=== PATIENT | female | born 1945 | race Caucasian/White ===

== ENCOUNTER → 2020-08-09 00:23 | Outpatient (CLI) | payer MEDICARE, SELFPAY ==
[2020-08-09 18:19] LABS: SARS-CoV-2 RNA PCR Negative
== END ==
PROVIDERS: PCP Family Medicine; Visit Provider Internal Medicine Gastroenterology
DX: Z01.812 Encounter for preprocedural laboratory examination (principal); Z20.822 Contact with and (suspected) exposure to COVID-19
CPT/HCPCS: C9803; U0003; U0005

== ENCOUNTER 2020-08-12 00:22 | Day surgery (SDC) | payer MEDICARE, SELFPAY ==
[2020-07-26 11:32] VITALS: BMI 40.8
--- NOTE | ~2020-08-12 | CT_ITS ---
EXAMINATION: CT abdomen pelvis w con DATE: 08/12/2020 14:00 INDICATION: Colon mass TECHNIQUE: Computed tomography (CT) of the abdomen and pelvis was performed with 100 cc Omnipaque 350 intravenous contrast. Automated exposure control and iterative reconstruction technique were employe d. Exam dose: 1372.12 mGy-cm total exam DLP. COMPARISON: None. FINDINGS: There are calcified bilateral lower lobe pulmonary granulomas. There is discoid atelectasis or scarring at the base of the lingula. Normal heart size. No pericardial or pleural effusion. Moderate sliding hiatal hernia. Status post cholecystectomy. No bile duct or pancreatic duct dilatation. No hepatic, splenic, pancreatic space-occupying mass lesion. Probable small right adrenal adenoma. Normal left adrenal gland. Occasional bilateral probable renal cysts measuring up to approximately 11 mm on the right and 9 mm o n the left. No urinary tract calculus or hydroureteronephrosis. There is atherosclerotic calcification of the abdominal aorta and iliac arteries but no aneurysm. There is a soft tissue mass at the rectosigmoid area with surrounding lymph nodes measuring up to 12 x 14 mm and 8 x 17 mm. 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 There are shotty but nonenlarged periaortic or aortocaval nodes. There are numerous diverticula of the sigmoid and descending colon; no CT evidence of diverticulitis. Normal appendix. No bowel obstruction is evident. No intraperitoneal free air. Small fat-containing umbilical hernia. The uterus, adnexal areas and urinary bladder are unremarkable. Bilateral fat-containing inguinal hernias. Right total hip arthroplasty. Severe degenerative disease at T12-L1, L4-5 and L5-S1. There is mild retrolisthesis at L3-4. No suspicious osteolytic or osteoblastic lesions are noted. IMPRESSION: Soft tissue mass at the rectosigmoid area consistent with colon carcinoma, with adjacent metastatic lymph nodes Diverticulosis of left colon Normal appendix Probable bilateral renal cysts Small right adrenal adenoma Moderate sliding hiatal hernia Status post cholecystectomy Reviewed, dictated and finalized at [facility]. Reviewed, dictated and finalized at location [facility]. [employer] IMPRESSION: Soft tissue mass at the rectosigmoid area consistent with colon ca rcinoma, with adjacent metastatic lymph nodes Diverticulosis of left colon Normal appendix Probable bilateral renal cysts Small right adrenal adenoma Moderate sliding hiatal hernia Status post cholecystectomy
[2020-08-12 11:34] VITALS: BP 148/80; PULSE 88; RESP 20; TEMP 36.8; O2SAT 94; BMI 40.4
[2020-08-12] MEDS: LACTATED RINGERS 1,000 ML 150 ML IV CONT (11:51)
--- NOTE | 2020-08-12 12:13 | WPDANESEPPF ---
Anes - Initial Pre Proc Eval Procedure: Operation Date: 08/12/20 12:30 Proposed Procedures p Colonoscopy - Kiran Julio MD Date/Time: 08/12/20 12:13 Surgeon: Kiran Julio MD Pre Op Diagnosis: Positive Cologuard Patient Data Age: 75 Gender: F Height: 5 ft 3 in Weight: 103.4 kg Last Vital Signs Temp 36.8 C 08/12/20 11:34 Pulse 88 08/12/20 11:34 Resp 20 08/12/20 11:34 BP 148/80 H 08/12/20 11:34 Pulse Ox 94 08/12/20 11:34 Allergies Allergy/AdvReac Type Severity Reaction Status Date / Time No Known Allergies Allergy Verified 08/02/20 14:35 Home Medications Medication Instructions Recorded Confirmed Type oxybutynin chloride 5 mg tablet 5 mg PO TID #90 tablet 03/08/20 08/02/20 Rx sodium,potassium,mag sulfates 17.5 See Rx Instructions PO .COMPLEX 07/25/20 08/02/20 Rx gram-3.13 gram-1.6 gram oral soln #354 ml ketoconazole 1 applic TOPICAL BID PRN 07/26/20 08/02/20 History triamcinolone acetonide 1 applic TOPICAL BID PRN 07/26/20 08/02/20 History atorvastatin 10 mg tablet See Rx Instructions .ROUTE 08/08/20 Rx .COMPLEX #90 tablet diclofenac sodium 75 mg See Rx Instructions .ROUTE 08/08/20 Rx tablet,delayed release .COMPLEX #180 tablet lisinopril 20 See Rx Instructions .ROUTE 08/08/20 08/12/20 Rx mg-hydrochlorothiazide 25 mg tablet .COMPLEX #90 tablet Patient hx anesthesia problems: none Family hx anesthesia problems: none PMFSH Family History Family History Father Family history of cardiovascular disease Grandparent Family history of cardiovascular disease Family history of coronary artery disease Mother Family history of cardiovascular disease Acute myocardial infarction Carcinoma of colon Family history of malignant neoplasm of cervix Family history of lung cancer Family history of malignant neoplasm of breast in first degree relative Social History Social History (Updated 08/02/20 @ 14:55 by Chidi Ding PA-C) Smoking packs per day: 0.75 Smoking cigarettes per day: 15.0 Years smoked: 50 Smoking pack-years: 37.50 Smoking status: Former smoker Tobacco type: cigarettes Alcohol intake: never Substance use: never Substance use type: does not use Living arrangements: with family Anes - Evwin Final PreProcedure Day of Procedure 08/12/20 12:13 Patient weight: morbidly obese Heart: regular rate and rhythm Lungs: clear to auscultation Airway: Mallampati scale class II Neurological: alert and oriented Last oral intake: >/= 8 hours ASA classification: III Emergent: no Anesthetic plan: proceed Anesthesia type and monitoring: general GIVS and standard monitoring Informed Consent: The patient's anesthetic plan and its attendant risks and benefits were discussed with the patient/family/POA. Questions were solicited and answers provided to the satisfaction of the patient/family/POA.
--- NOTE | 2020-08-12 12:31 | PM.HPGS ---
History of Present Illness History of Present Illness Consent: Risks, benefits, and alternatives have been discussed and questions answered. Patient agrees to proceed with procedure. Chief complaint: Positive Cologuard Narrative: Yara Moralez is a 75 year old female had positive cologuard and lately rectal pressure. Had sigmoidoscopy more than 10 years ago. Review of Systems Constitutional: Constitutional: Denies headache(s) and Denies weakness Eyes: Eyes: Denies blurry vision ENT: Reports Normal hearing present, Denies headache(s) and Denies neck pain Cardiovascular: Cardiovascular: Denies chest pain and Denies dyspnea Respiratory: Respiratory: Denies dyspnea Gastrointestinal: Gastrointestinal: Reports no additional gastrointestinal complaints Genitourinary: Genitourinary: Denies dysuria Musculoskeletal: Musculoskeletal: Denies neck pain Integumentary/Breasts: Skin/Breast: Denies dry skin Neurologic: Reports Normal hearing present, Denies headache(s) and Denies weakness Psychiatric: Psychiatric: Denies anxiety Endocrine: Endocrine: Denies change in body appearance Hematologic/Lymphatic: Hematologic/Lymphatic: Denies easy bleeding Allergic/Immunologic: Allergic/Immunologic: Denies urticaria PMF Past Medical History Medical History (Updated 08/12/20 @ 12:33 by Kiran Julio MD) Positive colorectal cancer screening using Cologuard test Family History Family History Father Family history of cardiovascular disease Grandparent Family history of cardiovascular disease Family history of coronary artery disease Mother Family history of cardiovascular disease Acute myocardial infarction Carcinoma of colon Family history of malignant neoplasm of cervix Family history of lung cancer Family history of malignant neoplasm of breast in first degree relative Social History Social History (Updated 08/02/20 @ 14:55 by Chidi Ding PA-C) Smoking packs per day: 0.75 Smoking cigarettes per day: 15.0 Years smoked: 50 Smoking pack-years: 37.50 Smoking status: Former smoker Tobacco type: cigarettes Alcohol intake: never Substance use: never Substance use type: does not use Living arrangements: with family Meds Home Medications and Allergies Home Medications Medication Instructions Recorded Confirmed Type oxybutynin chloride 5 mg tablet 5 mg PO TID #90 tablet 03/08/20 08/02/20 Rx sodium,potassium,mag sulfates 17.5 See Rx Instructions PO .COMPLEX 07/25/20 08/02/20 Rx gram-3.13 gram-1.6 gram oral soln #354 ml ketoconazole 1 applic TOPICAL BID PRN 07/26/20 08/02/20 History triamcinolone acetonide 1 applic TOPICAL BID PRN 07/26/20 08/02/20 History atorvastatin 10 mg tablet See Rx Instructions .ROUTE 08/08/20 Rx .COMPLEX #90 tablet diclofenac sodium 75 mg See Rx Instructions .ROUTE 08/08/20 Rx tablet,delayed release .COMPLEX #180 tablet lisinopril 20 See Rx Instructions .ROUTE 08/08/20 08/12/20 Rx mg-hydrochlorothiazide 25 mg tablet .COMPLEX #90 tablet Allergies Allergy/AdvReac Type Severity Reaction Status Date / Time No Known Allergies Allergy Verified 08/02/20 14:35 Vital Signs Vital Signs - 24 hr 08/12/20 11:34 Temperature 98.3 F Pulse Rate 88 Respiratory Rate 20 Blood Pressure 148/80 H Pulse Oximetry 94 Exam Const: General: comfortable and no acute distress HENMT: General nose exam: Normal nares present Eyes: General: appearance normal, both eyes and all related structures Neck: Neck: no JVD Resp: Auscultation: clear to auscultation bilaterally Cardio: Rate: regular rate Rhythm: regular rhythm GI: Inspection: non-distended GI Palp: Yes Soft to palpation Skin: General skin exam: normal color Neuro: General: gait normal Speech: normal speech Extrem: General: normal to inspection Psych: Mental Status: mental status grossly normal Assessment
[2020-08-12 12:58] VITALS: BP 138/61; PULSE 106; RESP 24; O2SAT 99
[2020-08-12 13:08] VITALS: BP 162/81; PULSE 93; RESP 20; O2SAT 96
[2020-08-12 13:17] LABS: Hemoglobin 11.1 g/dL (12.0-15.0); Mean Corpuscular HGB Conc 31.7 g/dl (32-36); Mean Corpuscular Hemoglobin 27.3 pg (26-34); Mean Corpuscular Volume 86.2 fl (80-100); Platelet Count Result 337 k/mm3 (150-375); Red Blood Count 4.06 M/mm3 (4.2-5.4); Red Cell Distribution Width 14.1 % (11.5-14.5); White Blood Count 7.5 K/mm3 (4.5-10.0)
[2020-08-12 13:20] VITALS: BP 171/98; PULSE 80; RESP 20; O2SAT 97
--- NOTE | 2020-08-12 13:25 | SUR.PHASEII ---
Taking patient over to radiology with IV still in place.
[2020-08-12 13:29] LABS: Alanine Aminotransferase 12 U/L (4-35); Albumin Level 3.6 g/dL (3.5-5.1); Alkaline Phosphatase 61 U/L (38-126); Anion Gap 4 mmol/L (8-16); Aspartate Amino Transferase 19 U/L (14-36); Bilirubin,Total 0.4 mg/dL (0.2-1.3); Blood Urea Nitrogen 14 mg/dL (7-17); Carbon Dioxide 32 mmol/L (22-30); Chloride 105 mmol/L (98-107); Estimated CRCL calculation 82 ml/min; Estimated Glomerular Filt Rate > 60; Glucose 98 mg/dL (65-105); Potassium 3.6 mmol/L (3.4-5.0); Sodium 141 mmol/L (137-145)
== END 2020-08-12 13:30 | disposition home or self-care (01) ==
PROVIDERS: PCP Family Medicine; Visit Provider Internal Medicine Gastroenterology
PROC: 0DJD8ZZ Inspection of Lower Intestinal Tract, Via Natural or Artificial Opening Endoscopic (ICD-10-PCS; CPT 45378; principal; 2020-08-12 12:30)
DX: C18.7 Malignant neoplasm of sigmoid colon (principal); K62.89 Other specified diseases of anus and rectum; K57.30 Diverticulosis of large intestine without perforation or abscess without bleeding; K64.4 Residual hemorrhoidal skin tags; K64.8 Other hemorrhoids; R19.5 Other fecal abnormalities; Z87.891 Personal history of nicotine dependence; E66.01 Morbid (severe) obesity due to excess calories; Z68.41 Body mass index [BMI] 40.0-44.9, adult
CPT/HCPCS: 45380; 45381; 36415; 74177; 80053; 82378; 85027; 88305; C9803; J2704; J7120; Q9967; U0003; U0005

== ENCOUNTER 2020-08-21 08:22 | Outpatient (CLI) | payer MEDICARE, SELFPAY ==
--- NOTE | ~2020-08-21 | CT_ITS ---
EXAMINATION: CT diagnostic chest w con EXAM DATE: 08/21/2020 08:57 INDICATION: Sigmoid colonic cancer. TECHNIQUE: Spiral CT of the chest following intravenous injection of 75 mL Omnipaque 350. Axial, cor onal and sagittal images were reviewed. Coronal maximum intensity pixel images of chest reviewed. T lita dose-length product (DLP) for this examination was 771.85 mGy-cm. The exposure was tailored accor ding to patient size (auto mA exposure control), and iterative reconstruction (ASIR) was used as mathew tional dose reduction technique. Comparison is made to prior examination from 11/27/2016. FINDINGS: There are approximately a dozen pulmonary nodules identified up to 7 mm in size. These nod ules are new compared to 2017, and are most likely metastatic disease. Trace pericardial effusion. Tracheobronchial tree is patent. There is no mediastinal, hilar or axillary lymphadenopathy. Ther e is no pneumothorax. Heart normal in size. There is mild coronary arterial calcification, arteri al sclerosis. There are cholecystectomy clips. There is small to moderate sliding gastroesophageal h iatal hernia. No osteoblastic or osteolytic lesions identified. Bilateral shoulder arthritis and pro bably some right shoulder inferior recess joint bodies. IMPRESSION: 1. Approximately a dozen pulmonary nodules new compared to 2017, most likely metastatic disease. 2. Small to moderate hiatal hernia. Reviewed, dictated and finalized at location [facility]. [employer] IMPRESSION: 1. Approximately a dozen pulmonary nodules new compared to 2017, most likely m etastatic disease. 2. Small to moderate hiatal hernia.
== END 2020-08-21 08:23 | disposition home or self-care (01) ==
LOC: ANHIMG 08:27
PROVIDERS: PCP Family Medicine; Visit Provider Internal Medicine Hematology & Oncology
DX: C18.7 Malignant neoplasm of sigmoid colon (principal); K44.9 Diaphragmatic hernia without obstruction or gangrene; R91.8 Other nonspecific abnormal finding of lung field
CPT/HCPCS: 71260; Q9967

== ENCOUNTER 2020-08-27 13:19 | Outpatient (CLI) | payer MEDICARE, SELFPAY ==
--- NOTE | ~2020-08-27 | PE_ITS ---
EXAMINATION: PET skull to mid thigh DATE: 08/27/2020 15:24 INDICATION: Malignant neoplasm of the sigmoid colon TECHNIQUE: Blood glucose level was 90 mg/dL. 10.632 mCi of 18-fluorodeoxyglucose (18-FDG) was adminis tered i.v. Low dose computed tomography (CT) images were acquired from the base of the brain to the p roximal thighs for attenuation correction and anatomic localization. Positron emission tomography (PE T) images were acquired in the same distribution beginning 57 minutes after injection. Images includi ng fused PET/CT images were reconstructed in axial, coronal, and sagittal planes. Automated exposure control technique was employed. The dose-length product was 882.53mGy-cm. COMPARISON: Chest CT dated 08/21/[address] abdomen and pelvis dated 08/12/2020 FINDINGS: Head/neck: There is symmetric increased activity in the oral and nasal cavities, laryngeal muscles and ocular mu scles without CT correlate, likely physiologic. No pathologically enlarged cervical lymphadenopathy o r suspicious foci of increased FDG uptake in the visualized head or neck. Chest: Again seen are multiple scattered pulmonary nodules in both lungs measuring up to 8 mm in maximal steven meter which are without increased FDG uptake. Linear discoid atelectasis at the lingula. No pleural e ffusion. Heart size is normal. Chronic small pericardial effusion. Atherosclerotic coronary artery ca lcification and aortic valve calcification. Moderate-sized sliding-type hiatal hernia. Thoracic aorta is normal in caliber. No pathologically enlarged or FDG avid thoracic lymphadenopathy. Abdomen/pelvis/proximal thighs: Physiologic renal accumulation and excretion of FDG activity in the kidneys, bladder and along portio ns of ureters. Cholecystectomy clips the gallbladder fossa. Normal degree and heterogenous pattern of increased uptake throughout the liver without radiologic correlate or dominant FDG avid lesion. The pancreas, spleen and left adrenal gland are normal. 1.5 cm right adrenal nodule without increased FDG uptake. There is intense FDG uptake associated with a region of circumferential wall thickening at t he distal sigmoid colon with maximal SUV of 22.3. There is increased FDG uptake of varying intensitie s associated with a few mildly enlarged lymph nodes along the inferior mesenteric artery chain. For r eference a lymph node anterior to the S2 segment measures 12 x 8 mm with maximal SUV of 11.5. No othe r enlarged or FDG avid lymphadenopathy in the abdomen, pelvis or proximal thighs. Musculoskeletal: Noncemented right total hip arthroplasty. Severe bilateral glenohumeral osteoarthritis with diffuse m ild synovial FDG uptake. No suspicious lytic, blastic or FDG avid bone lesions. IMPRESSION: 1. Intense FDG uptake along a segment of circumferential wall thickening in the distal sigmoid colon consistent with provided history of colon cancer. 2. Increased FDG uptake associated with several enlarged lymph nodes along the inferior mesenteric ch ain consistent with regional metastatic lymphadenopathy. 3. No evident FDG uptake associated with multiple bilateral pulmonary nodules measuring up to 8 mm in maximal diameter. The absence of appreciable increased uptake is reassuring given the intense uptake associated with the primary malignancy and adjacent likely metastatic lymph nodes and these nodules could represent sequela of old granulomatous disease. Would recommend continued attention on follow-u p chest CT . 4. 1.5 cm right adrenal nodule without evident FDG uptake which would favor adenoma for metastatic di sease. 5. Moderate-sized sliding-type hiatal hernia. Reviewed, dictated and finalized at location [facility]. [facility]
[2020-08-27 13:55] LABS: Glucose Point of Care 90 (65-105)
== END 2020-08-27 13:20 | disposition home or self-care (01) ==
PROVIDERS: PCP Family Medicine; Visit Provider Internal Medicine Hematology & Oncology
DX: C18.7 Malignant neoplasm of sigmoid colon (principal); R91.8 Other nonspecific abnormal finding of lung field; E27.9 Disorder of adrenal gland, unspecified; K44.9 Diaphragmatic hernia without obstruction or gangrene
CPT/HCPCS: 78815; 82948; A9552

== ENCOUNTER 2020-09-12 13:51 | Outpatient (CLI) | payer MEDICARE, SELFPAY ==
--- NOTE | 2020-09-12 14:38 | ECG_ITS ---
Measurements Intervals [place] Rate: 80 P: 40 KS: 140 QRS: 31 QRSD: 84 T: 31 QT: 369 QTc: 428 Interpretive Statements SINUS RHYTHM LOW QRS VOLTAGE IN PRECORDIAL LEADS BASELINE ARTIFACT- I, II, III, AVR, AVL, AVF, V3-V4 BORDERLINE ECG Electronically Signed On 09-12-2020 14:52:48 CDT by Darian Sigala D.O.
== END 2020-09-12 13:52 | disposition home or self-care (01) ==
LOC: ANHSURGERY 13:53
PROVIDERS: PCP Family Medicine; Visit Provider Surgery
DX: C19 Malignant neoplasm of rectosigmoid junction (principal); I10 Essential (primary) hypertension; Z01.818 Encounter for other preprocedural examination; R94.31 Abnormal electrocardiogram [ECG] [EKG]
CPT/HCPCS: 36415; 86850; 86900; 86901; 93005

== ENCOUNTER → 2020-09-14 00:53 | Outpatient (CLI) | payer MEDICARE, SELFPAY ==
[2020-09-14 19:13] LABS: SARS-CoV-2 RNA PCR Negative
== END ==
PROVIDERS: PCP Family Medicine; Visit Provider Surgery
DX: Z01.812 Encounter for preprocedural laboratory examination (principal); Z20.822 Contact with and (suspected) exposure to COVID-19
CPT/HCPCS: C9803; U0003; U0005

== ENCOUNTER 2020-09-18 16:59 | Inpatient (IN) | payer MEDICARE, SELFPAY ==
[2020-09-12 14:00] VITALS: BMI 41.1
[2020-09-12 14:40] VITALS: BP 126/57; PULSE 88; RESP 16; TEMP 37.2; O2SAT 98
[2020-09-18] VITALS (14 sets, daily range): BP systolic 94–146; BP diastolic 46–89; PULSE 75–100; RESP 12–20; TEMP 35.6–36.6; O2SAT 90–100; BMI 43.6
--- NOTE | ~2020-09-18 | XR_ITS ---
EXAMINATION: XR fl guid NG/feed tube insert DATE: 09/20/2020 14:28 INDICATION: Nasogastric tube placement TECHNIQUE: 4 fluoroscopic images of the lower abdomen were obtained during nasogastric tube placement performed by the patient's nurse. The amount of fluoroscopy time used during this procedure was 2.2 minutes. COMPARISON: CT dated 08/12/2020 FINDINGS: The nasogastric tube was able to be advanced into the small intrathoracic portion of the stomach with small sliding-type hiatal hernia seen on prior CT. Despite multiple attempts resulting in recurrent patient emesis the tube was uneventfully advanced further into the anterior abdominal portion of the stomach. IMPRESSION: 1. Fluoroscopy utilized during nasogastric tube placement. The distal tip was able to be advanced int o the intrathoracic portion of the stomach with small sliding-type hiatal hernia. Reviewed, dictated and finalized at location A. IMPRESSION: 1. Fluoroscopy utilized during nasogastric tube placement. The distal tip was a ble to be advanced into the intrathoracic portion of the stomach with small sli ding-type hiatal hernia.
--- NOTE | ~2020-09-18 | XR_ITS ---
XR chest 1V portable 09/25/2020 12:47 Indication: Shortness of breath Procedure: AP portable chest Comparison: 12/15/2017 Findings: Cardiomegaly. There are linear infiltrates in the right perihilar and left mid lung zone lo cations. Elevated right diaphragm. No focal pneumonia, pleural effusion or pneumothorax. No acute oss eous abnormality. There are degenerative changes of the shoulders with loose bodies medial to the rig ht shoulder joint. Impression: 1: Bilateral subsegmental atelectasis. 2: Cardiomegaly. Reviewed, dictated and finalized at location B. Impression: 1: Bilateral subsegmental atelectasis. 2: Cardiomegaly.
--- NOTE | 2020-09-18 08:36 | WPDANESEPPF ---
Anes - Initial Pre Proc Eval Procedure: Operation Date: 09/18/20 12:00 Proposed Procedures p Hand Assisted Laparoscopic Sigmoidectomy Lower Anterior Resection - Precious Nair MD Date/Time: 09/18/20 08:36 Surgeon: Precious Nair MD Pre Op Diagnosis: Rectal Sigmoid CA Patient Data Age: 75 Gender: F Height: 1.59 m Weight: 103.6 kg Last Vital Signs Temp 37.2 C 09/12/20 14:40 Pulse 88 09/12/20 14:40 Resp 16 09/12/20 14:40 BP 126/57 L 09/12/20 14:40 Pulse Ox 98 09/12/20 14:40 Allergies Allergy/AdvReac Type Severity Reaction Status Date / Time No Known Allergies Allergy Verified 09/12/20 14:01 Home Medications Medication Instructions Recorded Confirmed Type ketoconazole 1 applic TOPICAL BID PRN 07/26/20 09/18/20 History triamcinolone acetonide 1 applic TOPICAL BID PRN 07/26/20 09/18/20 History atorvastatin 10 mg tablet See Rx Instructions .ROUTE 08/08/20 09/18/20 Rx .COMPLEX #90 tablet neomycin 500 mg tablet 1 g PO .COMPLEX #6 tablet 09/09/20 09/18/20 Rx diclofenac sodium 75 mg PO QAM 09/12/20 09/18/20 History lisinopril-hydrochlorothiazide 0.5 tablet PO QAM 09/12/20 09/18/20 History oxybutynin chloride 5 mg PO BID 09/12/20 09/18/20 History metronidazole 500 mg tablet 500 mg PO .COMPLEX #3 tablet 09/13/20 09/18/20 Rx Patient hx anesthesia problems: none Family hx anesthesia problems: none PMFSH Past Medical History Medical History Benign essential hypertension Dyslipidemia Mass of colon Positive colorectal cancer screening using Cologuard test Surgical History Surgical History History of cholecystectomy History of colonoscopy History of left knee replacement History of right hip replacement Family History Family History Father Family history of cardiovascular disease Grandparent Family history of cardiovascular disease Family history of coronary artery disease Mother Family history of cardiovascular disease Acute myocardial infarction Carcinoma of colon Family history of malignant neoplasm of cervix Family history of lung cancer Family history of malignant neoplasm of breast in first degree relative Social History Social History Smoking packs per day: 0.5 Smoking cigarettes per day: 10.0 Years smoked: 50 Smoking pack-years: 25.00 Smoking status: Former smoker Tobacco type: cigarettes Smoking end date: 06/28/10 Alcohol intake: never Substance use: never Substance use type: does not use Living arrangements: with family Spiritual care concerns: No Anes - Eval Final PreProcedure Day of Procedure 09/18/20 08:36 Patient weight: morbidly obese Heart: regular rate and rhythm Lungs: clear to auscultation and normal air movement Airway: Mallampati scale class III Neurological: alert and oriented Last oral intake: >/= 8 hours ASA classification: III Emergent: no Anesthetic plan: proceed Anesthesia type and monitoring: general ETT and standard monitoring Informed Consent: The patient's anesthetic plan and its attendant risks and benefits were discussed with the patient/family/POA. Questions were solicited and answers provided to the satisfaction of the patient/family/POA.
[2020-09-18] MEDS: ACETAMINOPHEN 500 MG TABLET 1000 MG PO (10:23)
[2020-09-18] MEDS: ALVIMOPAN 12 MG CAPSULE PO (10:24)
[2020-09-18] MEDS: LACTATED RINGERS 1,000 ML 30 ML IV CONT ×2 (10:50→15:27)
[2020-09-18] MEDS: KETOROLAC 15 MG/ML VIAL (*BKC) IV PUSH (10:56)
--- NOTE | 2020-09-18 11:27 | WPDHPUPDATE1 ---
History and Physical Update Update Date/Time: 09/18/20 11:27 History and Physical has been reviewed, including an updated exam of the patient. There are NO changes in the patient's condition. Risks, benefits, and alternatives have been discussed and questions answered. Patient agrees to proceed with procedure.
[2020-09-18] MEDS: ceFAZolin 2 GM/D5W 50 ML 2 GM/50 ML BAG IVPB (11:34)
[2020-09-18] MEDS: metroNIDAZOLE 500 MG/ISO 100ML 500 MG/100 ML BAG 100 MG IVPB (11:46)
[2020-09-18] MEDS: BUPIVACAINE/EPINEPHRINE 0.5% 30 ML VIAL INFILTRATE (12:37)
--- NOTE | 2020-09-18 15:25 | PM.PROC ---
Procedure Note - Detailed Date of procedure: 09/18/20 Pre-op diagnosis: Rectal Sigmoid CA Post-op diagnosis: same Procedure performed: Hand assisted laparoscopic low anterior resection with low pelvic anastomosis and loop ileostomy, laparoscopic mobilization of the splenic flexure Description of procedure: The patient was taken to the operating room and placed in the modified lithotomy position. After adequate induction of general anesthesia, the patient was prepped and draped in the normal sterile fashion. A time-out was then done to verify the patient's identity, as well as the procedure being performed. An approximately 7 cm vertical incision was made in the periumbilical region favoring the infra umbilical area. This incision was carried down into the peritoneal cavity. Once into the peritoneal cavity, I was able to visualize the anterior abdominal wall and no adhesions were noted. I then proceeded to place the hand port. I then insufflated the abdomen through the hand port. I then placed under direct visualization a further 5 mm port in the right lower abdomen as well a 5 mm port in the suprapubic area. The patient was steep Trendelenburg and rotated to the right. The sigmoid colon was then retracted anteriorly to tent up the DONNELL and mesocolon. The medial side of the peritoneum was then scored the hook electrocautery. I was then able to enter the avascular retroperitoneal plane and continued the medial to lateral dissection. I was able to identify the left ureter and this was preserved in its location throughout the entire case. I then went ahead and isolated the inferior mesenteric artery and ligated it with the LigaSure device. Then continued along the medial to lateral plane and dissected out the lateral peritoneal attachments to descending sigmoid colon. This dissection was then carried down to the upper rectum. I then continued the dissection along the mesorectal plane down low into the pelvis and distal rectum. I was able to palpate a very large circumferential tumor in the distal sigmoid upper rectal junction. The tumor was noted to be very friable especially in the anterior portion. I began dissection posterior and then came along in the each lateral side with the LigaSure completing my mesorectal excision. Once I was distal to the tumor, I was able to clear off rectum in this area. I then turned my attention to the proximal resection. I continued my lateral dissection up the white line of Toldt to free up the sigmoid colon laterally. At this point I went ahead and mobilized the splenic flexure to gain length for our anticipated anastomosis. The echelon 60 mm blue load stapler was then advanced across the mid rectum and clamped and fired. This took a total of 2 firings of the stapler to completely come across the rectum. The sigmoid colon and rectum was then delivered through the wound protector and the GelPort was removed. Upon examining the area of the tumor, it was noted that there was an anterior perforation. I then identified an area of the descending sigmoid that appeared to be appropriate for the distal anastomosis. The mesocolon was taken down to this level the remainder of the way using the LigaSure device. I then placed the auto purse Celeste device this area and transected the descending sigmoid colon. The specimen was now sent to pathology for further review. I then used in 28 mm EEA stapler and placed in the descending sigmoid colon the area of the anticipated proximal anastomosis. It was noted that we had plenty of length to reach to the pelvis. We then replaced the hand port and reinsufflated the abdomen. Dr. Edward was then present for the anastomosis as he went to do the rectal portion of the procedure. Upon placing the EEA sizers, there was noted to be a tear in the anterior portion of the rectal stump. Given this, further dissection of the rectal stump was done to get distal to the area of perforation. Once done, was able
[2020-09-18] MEDS: fentaNYL CITRATE INJ (*CRX) 100 MCG/2 ML VIAL 25 MCG IV PUSH ×2 (16:11→16:15)
--- NOTE | 2020-09-18 17:05 | PC.NURSE ---
This patient, Yara Moralez, was admitted to Medical Room 341-01. Patient/family oriented to hospital policies and general routines including ID bracelet, bed and alarms, visiting hours, pain management, procedures, bathroom and other care routines, personal items, smoking policy, room service/diet, and visiting hours. Information on how to activate the Rapid Response Team has been discussed. Patient/Family are encouraged to report perceived risks to care and to ask questions if they do not understand what they are told or what they should do.
[2020-09-18] MEDS: LACTATED RINGERS 1,000 ML 100 ML IV CONT (18:42)
--- NOTE | 2020-09-18 23:00 | PC.NURSE ---
Attempted to get patient out of bed and sitting up in the chair. Patient refused, stating, I just want to rest tonight. Patient educated on the importance of moving after surgery and using her incentive spirometer.
[2020-09-19] MEDS: HYDROcodone/acetaminophen (*CRX) 5-325 MG TABLET 2 TAB PO ×2 (02:43→21:19)
[2020-09-19 04:06] VITALS: BP 125/70; PULSE 99; RESP 17; TEMP 36.7; O2SAT 96
[2020-09-19] MEDS: LACTATED RINGERS 1,000 ML 100 ML IV CONT (05:07)
[2020-09-19 06:26] LABS: Hematocrit 33.8 % (37.0-47.0); Hemoglobin 10.6 g/dL (12.0-15.0); Mean Corpuscular HGB Conc 31.4 g/dl (32-36); Mean Corpuscular Hemoglobin 26.7 pg (26-34); Mean Corpuscular Volume 85.1 fl (80-100); Mean Platelet Volume 9.7 fl (7.4-10.4); Platelet Count Result 319 k/mm3 (150-375); Red Blood Count 3.97 M/mm3 (4.2-5.4); Red Cell Distribution Width 14.2 % (11.5-14.5); White Blood Count 16.4 K/mm3 (4.5-10.0)
[2020-09-19 06:50] LABS: Anion Gap 6 mmol/L (8-16); Blood Urea Nitrogen 15 mg/dL (7-17); Calcium 8.6 mg/dL (8.4-10.2); Carbon Dioxide 30 mmol/L (22-30); Chloride 99 mmol/L (98-107); Estimated CRCL calculation 73 ml/min; Estimated Glomerular Filt Rate > 60; Glucose 121 mg/dL (65-105); Potassium 3.7 mmol/L (3.4-5.0); Sodium 135 mmol/L (137-145)
[2020-09-19 06:57] LABS: Band Neutrophils Percent 14 % (0-6); Lymphocytes Absolute Manual 0.98 K/mm3 (1.1-4.5); Monocytes Absolute Manual 1.14 K/mm3 (0.1-0.90); Monocytes Percent Manual 7 % (3-9); Neutrophils Absolute Manual 14.26 K/mm3 (1.7-7.2); Neutrophils Percent Manual 73 % (46-73); Platelet Estimate Adequate (Adequate); Total Cells Counted 100
[2020-09-19 06:58] LABS: Anisocytosis 1+ (NORMAL)
--- NOTE | 2020-09-19 09:17 | WPDANESPN ---
Anes - Prog Note Post-Op Date/Time: 09/19/20 09:17 Cardiovascular status: normal Respiratory status: normal Airway patency: baseline Mental status: baseline Post-Op hydration status: normal Vital Signs: Last Vital Signs Temp 98.1 F 09/19/20 04:06 Pulse 99 09/19/20 04:06 Resp 17 09/19/20 04:06 BP 125/70 09/19/20 04:06 Pulse Ox 96 09/19/20 04:06 Pain Score (VAS): 07/07 I/O: Intake & Output 09/18/20 09/19/20 09/19/20 23:59 07:59 15:59 Intake Total 550 1175 Output Total 120 300 Balance 430 875 Laboratory Tests 09/19/20 05:33 09/19/20 05:33 09/19/20 09/19/20 05:33 05:33 WBC 16.4 H RBC 3.97 L Hgb 10.6 L Hct 33.8 L MCV 85.1 MCH 26.7 MCHC 31.4 L RDW 14.2 Plt Count 319 MPV 9.7 Immature Gran % (Auto) Not Reportable Neut % (Auto) Not Reportable Lymph % (Auto) Not Reportable [place] % (Auto) Not Reportable Eos % (Auto) Not Reportable Baso % (Auto) Not Reportable Lymph # (Auto) Not Reportable [place] # (Auto) Not Reportable Eos # (Auto) Not Reportable Baso # (Auto) Not Reportable Abs Immat Gran (auto) Not Reportable Absolute Neuts (auto) Not Reportable Absolute Nucleated RBC Not Reportable Total Counted 100 Neutrophils % (Manual) 73 Band Neutrophils % 14 H Lymphocytes % (Manual) 6.0 L Monocytes % (Manual) 7 Nucleated RBC % Not Reportable Abs Neuts (Manual) 14.26 H Abs Lymphs (Manual) 0.98 L Abs Monocytes (Manual) 1.14 H Platelet Estimate Adequate Anisocytosis 1+ Sodium 135 L Potassium 3.7 Chloride 99 Carbon Dioxide 30 Anion Gap 6 L BUN 15 Creatinine 0.70 Estim Creat Clear Calc 73 Estimated GFR > 60 Glucose 121 H Calcium 8.6 Post-procedural complaints: none Patient Feedback: Patient satisfied with anesthetic care.
[2020-09-19 09:30] VITALS: O2SAT 96
[2020-09-19] MEDS: hydroCHLOROthiazide 12.5 MG CAPSULE PO (09:32)
[2020-09-19] MEDS: ATORVASTATIN 10 MG TABLET PO (09:32)
[2020-09-19] MEDS: OXYBUTYNIN CHLORIDE 5 MG TABLET PO (09:32)
[2020-09-19] MEDS: ALVIMOPAN 12 MG CAPSULE PO ×2 (09:32→21:19)
[2020-09-19] MEDS: lisinopriL 10 MG TABLET PO (09:32)
[2020-09-19] MEDS: PANTOPRAZOLE 40 MG TABLET PO (09:33)
[2020-09-19] MEDS: ENOXAPARIN 40 MG/0.4 ML SYRINGE SUB-Q (09:33)
[2020-09-19] MEDS: MORPHINE SULFATE (*CRX) 2 MG/ML INJ IV PUSH (09:35)
[2020-09-19 10:44] VITALS: BP 130/78; PULSE 86; RESP 18; TEMP 36.1; O2SAT 100
--- NOTE | 2020-09-19 10:59 | PM.PNGS ---
Progress Note: A&P Assessment and Plan (1) Metastatic colon cancer in female: Code(s): C18.9 - Malignant neoplasm of colon, unspecified Status: Acute Assessment and Plan: POD#1 and doing fair. Pain not well controlled on oral analgesics, will try IV this morning. Continue clear liquids. Monitor IRAJ drain to bulb suction. Encouraged OOB, increased activity, and IS use. Will order PT to work with patient. Urine output slightly low but also not much oral intake, will increase IV fluids for today until tolerating diet. Creatinine normal, labs this morning were unremarkable. Repeat labs in the am. Await return of bowel function. Pathology pending. Additional Plan Discussed plan of care with Dr. Nair today. Subjective Subjective Date/Time Seen: 09/19/20 10:59 Post Op day: 1 (JIMBO low anterior resection with low pelvic anastomosis and loop ileostomy) Patient reports: still having pain, no flatus and no bowel movement Interval history: Patient reports having a lot of incisional abdominal pain with movement. Has not gotten out of bed or up to chair. Still has vieira in place. U/O 250 cc overnight. Patient has not had anything orally other than sips of water. No other complaints at this time. Review of Systems Review of Systems: All systems reviewed & are unremarkable except as noted in HPI and below Constitutional: Constitutional: Reports as per HPI, Reports no additional constitutional complaints, Denies chills and Denies fever(s) Cardiovascular: Cardiovascular: Reports no additional cardiovascular complaints, Denies chest pain, Denies leg edema and Denies dyspnea Respiratory: Respiratory: Reports no additional respiratory complaints, Denies cough and Denies dyspnea Gastrointestinal: Gastrointestinal: Reports as per HPI and Reports no additional gastrointestinal complaints Neurologic: Reports system reviewed and no additional complaints, except as documented, Denies Abnormal speech present, Denies confusion and Denies focal weakness Psychiatric: Psychiatric: Denies confusion Exam Const: General: no acute distress, alert, awake and uncomfortable Orientation/consciousness: patient oriented x3 Resp: Effort & Inspection: normal respiratory effort Auscultation: clear to auscultation bilaterally Cardio: Rate: regular rate Rhythm: regular rhythm GI: Inspection: incision (Midline abd dressing clean and dry) GI Palp: Yes Soft to palpation and Yes Tenderness to palpation present (GI) (diffusely tender, worse near incisions) Auscultation: Hypoactive bowel sounds present Other: IRAJ drain with serosanguineous drainage. Right-sided loop ileostomy with small amount of bloody drainage. Urinary Catheter: Urinary Catheter: patent and draining and urine dark Neuro: General: moves all extremities and no focal motor deficits Speech: normal speech Extrem: General: normal to inspection, no clubbing, cyanosis or edema and no calf tenderness Psych: Mental Status: mental status grossly normal Insight: Good insight present (Psych) Judgement: Good judgement present (Psych) Objective Data Vital Signs Vital Signs: Vital Signs - 24 hr 09/18/20 15:27 09/18/20 15:40 09/18/20 15:55 Temperature 97.0 F L Pulse Rate 88 84 84 Respiratory Rate 14 12 13 Blood Pressure 94/59 L 98/46 L 102/55 L Pulse Oximetry 100 100 90 09/18/20 16:10 09/18/20 16:25 09/18/20 16:40 Temperature Pulse Rate 81 83 83 Respiratory Rate 12 12 12 Blood Pressure 108/55 L 101/48 L Pulse Oximetry 92 97 98 09/18/20 17:10 09/18/20 17:15 09/18/20 17:30 Temperature 96.0 F L 96.6 F L Pulse Rate 82 89 Respiratory Rate 16 16 Blood Pressure 108/56 L 109/57 L Pulse Oximetry 99 98 96 09/18/20 19:27 09/18/20 20:30 09/18/20 21:32 Temperature 97 F L Pulse Rate 90 Respiratory Rate 16 Blood Pressure 124/74 Pulse Oximetry 99 99 94 09/18/20 23:56 09/19/20 04:06 09/19/20 09:30 Temperature 97.6 F 98.1 F Pulse Rate 100 99 Respi
[2020-09-19] MEDS: LACTATED RINGERS 1,000 ML 150 ML IV CONT (12:45)
[2020-09-19 14:44] VITALS: BP 122/69; PULSE 84; RESP 18; TEMP 36.7; O2SAT 100
[2020-09-19 19:54] VITALS: BP 123/56; PULSE 100; RESP 14; TEMP 36.6; O2SAT 94
[2020-09-19] MEDS: ONDANSETRON INJ 4 MG/2 ML VIAL IV PUSH (21:18)
[2020-09-20] VITALS (14 sets, daily range): BP systolic 96–149; BP diastolic 48–97; PULSE 72–117; RESP 16–22; TEMP 36–37.1; O2SAT 90–100
[2020-09-20] MEDS: LACTATED RINGERS 1,000 ML 125 ML IV CONT ×3 (00:08→20:44)
[2020-09-20 05:29] LABS: Hematocrit 31.3 % (37.0-47.0); Hemoglobin 9.9 g/dL (12.0-15.0); Mean Corpuscular HGB Conc 31.6 g/dl (32-36); Mean Corpuscular Volume 85.3 fl (80-100); Mean Platelet Volume 9.3 fl (7.4-10.4); Platelet Count Result 326 k/mm3 (150-375); Red Blood Count 3.67 M/mm3 (4.2-5.4); Red Cell Distribution Width 14.4 % (11.5-14.5); White Blood Count 20.8 K/mm3 (4.5-10.0)
[2020-09-20 05:55] LABS: Anion Gap 3 mmol/L (8-16); Blood Urea Nitrogen 17 mg/dL (7-17); Calcium 8.6 mg/dL (8.4-10.2); Carbon Dioxide 33 mmol/L (22-30); Chloride 96 mmol/L (98-107); Estimated CRCL calculation 73 ml/min; Estimated Glomerular Filt Rate > 60; Glucose 143 mg/dL (65-105); Potassium 3.6 mmol/L (3.4-5.0); Sodium 132 mmol/L (137-145)
--- NOTE | 2020-09-20 08:42 | PM.PNGS ---
Progress Note: A&P Assessment and Plan (1) Rectosigmoid cancer: Code(s): C19 - Malignant neoplasm of rectosigmoid junction Status: Acute Assessment and Plan: encourage OOB/IS, cont clears, await ileostomy fxn, hope to get vieira out today, WBC 20k will start Zosyn and trend over the weekend, add Toradol for pain Subjective Subjective Date/Time Seen: 09/20/20 08:42 feels better today, working c PT/OT this am, reports nausea c pain meds Review of Systems Review of Systems: All systems reviewed & are unremarkable except as noted in HPI and below Exam Const: General: cooperative, comfortable and no acute distress Orientation/consciousness: patient oriented x3 Resp: Effort & Inspection: normal respiratory effort Auscultation: diminished lung sounds Cardio: Rate: tachycardic Rhythm: regular rhythm GI: Inspection: distended and incision GI Palp: Yes Soft to palpation, Yes Tenderness to palpation present (GI) and No Guarding due to palpation present (GI) Other: soft, mod dist, incision C/D/I, ostomy c some sweat, viable, IRAJ c mod s/s discharge Objective Data Vital Signs Vital Signs: Vital Signs - 24 hr 09/19/20 09:30 09/19/20 10:44 09/19/20 14:44 Temperature 36.1 C L 36.7 C Pulse Rate 86 84 Respiratory Rate 18 18 Blood Pressure 130/78 122/69 Pulse Oximetry 96 100 100 09/19/20 19:54 09/20/20 05:58 Temperature 36.6 C 36.6 C Pulse Rate 100 102 H Respiratory Rate 14 18 Blood Pressure 123/56 L 135/81 Pulse Oximetry 94 96 Intake/Output Intake/Output: Intake & Output 09/17/20 09/18/20 09/19/20 09/20/20 23:59 23:59 23:59 23:59 Intake Total 700 3815 250 Output Total 329 375 8998 Balance 530 3140 -860 Meds/Results Medications: Active Medications Generic Name Dose Route Start Last Admin Trade Name Freq PRN Reason Stop Dose Admin Acetaminophen 500 mg 09/18/20 16:59 Acetaminophen 500 Mg Tablet PO Q6H PRN Mild Pain (1-3) or Fever Hydrocodone Bitart/Acetaminophen 2 tab 09/18/20 16:59 09/19/20 21:19 Hydrocodone/Acetaminophen (*Crx) 5-325 Mg Tablet PO 2 tab Q4H PRN Administration Pain Rated 7-10 Alvimopan 12 mg 09/19/20 09:00 09/19/20 21:19 Alvimopan 12 Mg Capsule PO 09/26/20 09:01 12 mg Q12HR [facility] Administration Atorvastatin Calcium 10 mg 09/19/20 09:00 09/19/20 09:32 Atorvastatin 10 Mg Tablet PO 10 mg DAILY [facility] Administration Enoxaparin Sodium 40 mg 09/19/20 09:00 09/19/20 09:33 Enoxaparin 40 Mg/0.4 Ml Syringe SUB-Q 40 mg DAILY [facility] Administration Hydrochlorothiazide 12.5 mg 09/19/20 09:00 09/19/20 09:32 Hydrochlorothiazide 12.5 Mg Capsule PO 12.5 mg QAM [facility] Administration Hydrocortisone 1 applic 09/18/20 17:08 Hydrocortisone 1% 30 Gm Cream TOPICAL BID PRN Dry Skin/itching Lactated Ringer's 1,000 mls @ 125 mls/hr 09/18/20 16:59 09/20/20 00:08 Lr - Lactated Ringers Iv IV CONT 125 mls/hr .Q8H [facility] Administration Piperacillin/Tazobactam/Dextrose 3.375 gm in 50 mls @ 100 mls/hr 09/20/20 09:00 Zosyn 3.375 Gm/D5w 50ml Pm IVPB Q6H [facility] Ketorolac Tromethamine 30 mg 09/20/20 09:00 Ketorolac 30 Mg/Ml Vial (*Bkc) IV PUSH Q6H [facility] Lisinopril 10 mg 09/19/20 09:00 09/19/20 09:32 Lisinopril 10 Mg Tablet PO 10 mg QAM [facility] Administration Miconazole Nitrate 1 applic 09/18/20 17:06 Miconazole Nitrate 2% Cream 30 Gm Tube TOPICAL BID PRN Dry Skin Morphine Sulfate 2 mg 09/18/20 16:59 09/19/20 09:35 Morphine Sulfate (*Crx) 2 Mg/Ml Inj IV PUSH 2 mg Q2H PRN Administration Pain Rated 4-6 Naloxone HCl 0.1 mg 09/18/20 16:59 Naloxone Hcl 0.4 Mg/Ml Vial IV PUSH Q2M PRN Opiate Reversal Ondansetron HCl 4 mg 09/18/20 16:59 09/19/20 21:18 Ondansetron Inj 4 Mg/2 Ml Vial IV PUSH 4 mg Q4H PRN Administration Nausea And Vomiting Oxybutynin Chloride 5 mg 09/18/20 17:00 09/19/20 17:32 Oxybutynin Chloride 5 M
[2020-09-20] MEDS: KETOROLAC 30 MG/ML VIAL (*BKC) IV PUSH ×2 (09:37→20:43)
[2020-09-20] MEDS: ENOXAPARIN 40 MG/0.4 ML SYRINGE SUB-Q (09:39)
[2020-09-20] MEDS: hydroCHLOROthiazide 12.5 MG CAPSULE PO (09:40)
[2020-09-20] MEDS: OXYBUTYNIN CHLORIDE 5 MG TABLET PO (09:40)
[2020-09-20] MEDS: PANTOPRAZOLE 40 MG TABLET PO (09:40)
[2020-09-20] MEDS: lisinopriL 10 MG TABLET PO (09:40)
[2020-09-20] MEDS: ALVIMOPAN 12 MG CAPSULE PO ×2 (09:40→20:40)
[2020-09-20] MEDS: ATORVASTATIN 10 MG TABLET PO (09:41)
--- NOTE | 2020-09-20 12:49 | PCWOUND ---
WOCN NOTE Spoke with Lacy ZAYAS for patient about ostomy teaching today. per nurse, Patient having complications from surgery and teaching not a good idea at this time. Will reassess patient and situation on Wednesday09/23/20.
[2020-09-20] MEDS: MORPHINE SULFATE (*CRX) 2 MG/ML INJ IV PUSH (13:12)
--- NOTE | 2020-09-20 13:35 | WPDHPUPDATE1 ---
History and Physical Update Update Date/Time: 09/20/20 13:35 History and Physical has been reviewed, including an updated exam of the patient. There are changes in the patient's condition. Patient had a laparoscopic hand assisted sigmoid colectomy with anastomosis and subsequent protective ileostomy 2 days ago. She has had some nausea and vomiting over the last 2 days and now it was noticed that there slight wound separation at the largest of her incisions which is periumbilical. Upon examination appears there may be some dehiscence with a small loop of small bowel just under the skin at the wound closure site. Therefore, I have discussed with the patient the risks benefits possible complications of wound exploration re-closure of this wound to avoid further complications and possible bowel obstruction which may be why she is having the nausea problem right now. She has just returned from having an NG tube placed in by fluoroscopy and we will plan to leave this in for a day or 2 after surgery. Risks, benefits, and alternatives have been discussed and questions answered. Patient agrees to proceed with procedure.
--- NOTE | 2020-09-20 14:21 | WPDANESEPPF ---
Anes - Initial Pre Proc Eval Procedure: Operation Date: 09/20/20 15:00 Proposed Procedures p Wound Exploration and Closure - Isiah Ocasio MD Date/Time: 09/20/20 14:21 Surgeon: Precious Nair MD Pre Op Diagnosis: Rectal Sigmoid CA Patient Data Age: 75 Gender: F Height: 1.57 m Weight: 113.2 kg Last Vital Signs Temp 36.6 C 09/20/20 05:58 Pulse 102 H 09/20/20 05:58 Resp 18 09/20/20 05:58 BP 135/81 09/20/20 05:58 Pulse Ox 96 09/20/20 05:58 Allergies Allergy/AdvReac Type Severity Reaction Status Date / Time No Known Allergies Allergy Verified 09/18/20 18:05 Home Medications Medication Instructions Recorded Confirmed Type ketoconazole 1 applic TOPICAL BID PRN 07/26/20 09/18/20 History triamcinolone acetonide 1 applic TOPICAL BID PRN 07/26/20 09/18/20 History atorvastatin 10 mg tablet See Rx Instructions .ROUTE 08/08/20 09/18/20 Rx .COMPLEX #90 tablet diclofenac sodium 75 mg PO BID 09/12/20 09/18/20 History lisinopril-hydrochlorothiazide 0.5 tablet PO QAM 09/12/20 09/18/20 History oxybutynin chloride 5 mg PO BID 09/12/20 09/18/20 History Laboratory Tests 09/20/20 09/20/20 05:24 05:24 WBC 20.8 K/mm3 H K/mm3 (4.5-10.0) RBC 3.67 M/mm3 L M/mm3 (4.2-5.4) Hgb 9.9 g/dL L g/dL (12.0-15.0) Hct 31.3 % L % (37.0-47.0) MCV 85.3 fl fl (80-100) MCH 27.0 pg pg (26-34) MCHC 31.6 g/dl L g/dl (32-36) RDW 14.4 % % (11.5-14.5) Plt Count 326 k/mm3 k/mm3 (150-375) MPV 9.3 fl fl (7.4-10.4) Sodium 132 mmol/L L mmol/L (137-145) Potassium 3.6 mmol/L mmol/L (3.4-5.0) Chloride 96 mmol/L L mmol/L (98-107) Carbon Dioxide 33 mmol/L H mmol/L (22-30) Anion Gap 3 mmol/L L mmol/L (8-16) BUN 17 mg/dL mg/dL (7-17) Creatinine 0.70 mg/dL mg/dL (0.7-1.0) Estim Creat Clear Calc 73 ml/min ml/min Estimated GFR > 60 (59 - ) Glucose 143 mg/dL H mg/dL (65-105) Calcium 8.6 mg/dL mg/dL (8.4-10.2) Patient hx anesthesia problems: none Family hx anesthesia problems: none [facility] Past Medical History Medical History Benign essential hypertension Dyslipidemia Mass of colon Positive colorectal cancer screening using Cologuard test Surgical History Surgical History History of cholecystectomy History of colonoscopy History of left knee replacement History of right hip replacement Family History Family History Father Family history of cardiovascular disease Grandparent Family history of cardiovascular disease Family history of coronary artery disease Mother Family history of cardiovascular disease Acute myocardial infarction Carcinoma of colon Family history of malignant neoplasm of cervix Family history of lung cancer Family history of malignant neoplasm of breast in first degree relative Social History Social History Smoking packs per day: 0.5 Smoking cigarettes per day: 10.0 Years smoked: 50 Smoking pack-years: 25.00 Smoking status: Former smoker Tobacco type: cigarettes Smoking end date: 06/28/10 Alcohol intake: former Substance use: never Substance use type: does not use Living arrangements: with family Spiritual care concerns: No Anes - Eval Final PreProcedure Day of Procedure 09/20/20 14:21 Patient weight: morbidly obese Heart: regular rate and rhythm Lungs: clear to auscultation and normal air movement Airway: Mallampati scale class III Neurological: alert and oriented Last oral intake: >/= 8 hours ASA classification: III Emergent: no Anesthetic plan: proceed Anesthesia type and monitoring: general ETT and standard monitoring Informed Consent:
--- NOTE | 2020-09-20 14:23 | PC.NURSE ---
Patient taken from radiology to pre-op, report to CHANA Joiner.
[2020-09-20] MEDS: LACTATED RINGERS 1,000 ML 30 ML IV CONT ×2 (14:30→16:30)
--- NOTE | 2020-09-20 14:30 | PC.NURSE ---
Patient taken to radiology for NG placement under flouroscopy. Patient continues to project vomit in attempt to place NG tube. RN assisted by Dr. Traylor, who identified a sliding hiatal hernia in attempt to place NG tube. Output demonstrated in tubing from NG tube, however, another attempt was made to optimize placement into position without success. During placement of NG, RN received notification from surgery that Dr. Ocasio has decided to take patient to OR for dehiscence repair and requested report. Patient was taken from radiology to pre-op 17 directly, consent signed by patient, report provided to CHANA Joiner. Patient's daughter was updated.
--- NOTE | 2020-09-20 14:45 | PCWOUND ---
WOCN NOTE Received call from Dr Isiah Ocasio requesting an abdominal binder placed on patient with modification for ileostomy appliance. Patient in pre-op. fit binder to abdomen, cut hole for appliance and reinforced hole with ostomy tape. placed bonder on patient.
--- NOTE | 2020-09-20 14:52 | SUR.PREOP ---
salesperson [employer] furnish[employer] here and measured pt for [employer].
--- NOTE | 2020-09-20 16:36 | PM.PROC ---
Procedure Note - Detailed Date of procedure: 09/20/20 Pre-op diagnosis: Rectal Sigmoid CA 2. Suspected fascial dehiscence with evisceration Post-op diagnosis: other (Midline fascial dehiscence with small bowel and wound) Procedure performed: Midline wound exploration with repair of fascial dehiscence. Description of procedure: Preoperatively the patient was seen again in the preoperative area. Abdomen was marked near the midline incision near her umbilicus. Discussion was had with anesthesia regarding issues with the NG tube. Patient was taken to theoperating room and after induction of adequate general tracheal anesthesia we carefully remove the yosef at her wound and there was definitely small bowel within the mid part of the periumbilical wound. We used a Steri-Drape to drape off the area of the loop ileostomy and lower abdominal IRAJ drain. Abdomen was prepped with Betadine. Following this we carefully draped the abdomen sterilely in the usual fashion. Time-out was performed with the surgery team Following this we carefully explored the wound which showed a loop of small bowel up in the wound with the loop of the closure suture just above this loop of small bowel. I then by carefully feeling with my finger elevated the sutue and we then cut this at that point. It appeared that some of that suture had pulled through the fascial closure along the inferior portion of the wound. We followed the 2 ends of suture back and removed all of the suture inferiorly. We left some of the superior most part of the suture intact and put a hemostat on this to elevate the upper end of the wound( fascial incision site. At this point I wanted to get the NG tube further into the patient's stomach since even under fluoroscopy they could only get it to the area of the hiatal hernia with its tip into to the portion of her stomach that was in the hiatal hernia. I placed my hand into the wound was able to get up to the hiatus. There was about a 3-4 finger breath hiatal hernia and some of the upper end of the stomach was in this. Still at this point I could not feel the NG tube. We manipulated the NG tube that was present and still could not feel it so that I could help bring it down into the body of the stomach. We therefore opted to remove it completely now that she was anesthetized and we had multiple attempts even using the a rinse scope and the fiberoptic laryngoscope with the Alicia forceps and were unable to get an NG tube through the esophagus down to where I could feel it at the GE junction. Therefore, we left the tube in the esophagus during the case and removed at the end of the case at the time of extubation. Following this we carefully reduced all the small bowel back in the abdomen I tried to feel if could pull omentum down to the wound and intersperse it between the small bowel on the wound but there was not enough to do that. Following this we began closure. Closure was obtained by 1st placing approximately 7 interrupted #1 Vicryl sutures as internal retention sutures 1 cm back along the fascia on each side along the entire course of the incision. These were left long and not tied and hemostats on each side of the wound. Following this 0 strata fix suture was started at the top and the needle broke off of it when we had taken 3 bites. I then started a new one at the bottom of the fascial opening and ran this all the way up to the other one and tied them together. I then passed the end the still had the needle on it back and forth across the wound twice. Then through the fascia on 1 side 1 more time and then cut it off. This closed the fascia completely. We then irrigated the wound with about half a liter of saline and then we tied each of the 1. Vicryl's to itself closing the fascial wound completely. Following this yosef were used to loosely approximate the skin along the entire length of the incision. Dressing was applied using Xeroform gauze followed by some 4x
--- NOTE | 2020-09-20 17:41 | PC.NURSE ---
Patient returned from OR. Report received from CHANA Shannon.
[2020-09-21] VITALS (7 sets, daily range): BP systolic 113–126; BP diastolic 57–93; PULSE 96–104; RESP 16–22; TEMP 36.4–36.9; O2SAT 91–100
[2020-09-21] MEDS: KETOROLAC 30 MG/ML VIAL (*BKC) IV PUSH ×3 (03:47→22:09)
[2020-09-21] MEDS: LACTATED RINGERS 1,000 ML 125 ML IV CONT (03:47)
[2020-09-21 05:37] LABS: Hematocrit 26.3 % (37.0-47.0); Hemoglobin 8.3 g/dL (12.0-15.0); Mean Corpuscular HGB Conc 31.6 g/dl (32-36); Mean Corpuscular Hemoglobin 27.2 pg (26-34); Mean Corpuscular Volume 86.2 fl (80-100); Mean Platelet Volume 9.6 fl (7.4-10.4); Platelet Count Result 324 k/mm3 (150-375); Red Blood Count 3.05 M/mm3 (4.2-5.4); Red Cell Distribution Width 14.5 % (11.5-14.5); White Blood Count 17.4 K/mm3 (4.5-10.0)
[2020-09-21 06:02] LABS: Anion Gap 0 mmol/L (8-16); Blood Urea Nitrogen 31 mg/dL (7-17); Carbon Dioxide 39 mmol/L (22-30); Chloride 93 mmol/L (98-107); Estimated CRCL calculation 57 ml/min; Estimated Glomerular Filt Rate > 60; Glucose 111 mg/dL (65-105); Magnesium 1.9 mg/dL (1.6-2.3); Potassium 3.6 mmol/L (3.4-5.0); Sodium 132 mmol/L (137-145)
--- NOTE | 2020-09-21 08:27 | WPDANESPN ---
Anes - Prog Note Post-Op Date/Time: 09/21/20 08:27 Cardiovascular status: normal Respiratory status: normal Airway patency: baseline Mental status: baseline Post-Op hydration status: normal Vital Signs: Last Vital Signs Temp 36.4 C L 09/21/20 07:13 Pulse 104 H 09/21/20 07:13 Resp 16 09/21/20 07:13 BP 115/93 H 09/21/20 07:13 Pulse Ox 95 09/21/20 07:13 Pain Score (VAS): 0/10. Patient resting in bed at time of assessment, appears comfortable. PCT at bedside. I/O: Intake & Output 09/20/20 09/21/20 09/21/20 23:59 07:59 15:59 Intake Total 150 1290 Output Total 410 370 Balance -260 920 Laboratory Tests 09/21/20 05:11 09/21/20 05:11 09/21/20 09/21/20 05:11 05:11 WBC 17.4 H RBC 3.05 L Hgb 8.3 L Hct 26.3 L MCV 86.2 MCH 27.2 MCHC 31.6 L RDW 14.5 Plt Count 324 MPV 9.6 Sodium 132 L Potassium 3.6 Chloride 93 L Carbon Dioxide 39 H Anion Gap 0 L BUN 31 H D Creatinine 0.90 Estim Creat Clear Calc 57 Estimated GFR > 60 Glucose 111 H Calcium 8.0 L Magnesium 1.9 Post-procedural complaints: none Patient Feedback: Patient satisfied with anesthetic care.
[2020-09-21] MEDS: ALVIMOPAN 12 MG CAPSULE PO ×2 (09:21→22:09)
[2020-09-21] MEDS: PANTOPRAZOLE 40 MG TABLET PO (09:21)
[2020-09-21] MEDS: ENOXAPARIN 40 MG/0.4 ML SYRINGE SUB-Q (09:22)
[2020-09-21] MEDS: ONDANSETRON INJ 4 MG/2 ML VIAL IV PUSH (09:29)
--- NOTE | 2020-09-21 10:41 | PM.PNGS ---
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 (2) Abdominal wound dehiscence: Onset Date: ~09/20/20 Code(s): T81.30XA - Disruption of wound, unspecified, initial encounter Status: Acute Assessment and Plan: Patient postop day 1 status post repair. Seems to be improving slowly still somewhat nauseated but has good bowel sounds. Additional Plan Limit oral intake until more ostomy output Encouraged patient to be up walking and working with PT. Changing IV fluids to D5 normal saline in view of her electrolytes and will repeat labs tomorrow morning. Subjective Subjective Date/Time Seen: 09/21/20 10:41 Post Op day: 1 ( Status post dehiscence with re-closure of periumbilical wound) Patient reports: no new complaints and nausea ( nausea was better last night but she has again some today.) Interval history: patient is sitting up in bed. She has already been up in the chair once. She is complaining of some nausea again but has not had any vomiting. Urine output was adequate overnight. Review of Systems Constitutional: Constitutional: Reports no additional constitutional complaints ENT: Reports other (Mucous Membranes moist.) Cardiovascular: Cardiovascular: Denies dyspnea Respiratory: Respiratory: Denies pain on inspiration and Denies dyspnea Gastrointestinal: Gastrointestinal: Reports as per HPI, Denies GI cramping, Denies diarrhea and Reports nausea ( Mild without vomiting.) Musculoskeletal: Musculoskeletal: Reports other (No calf swelling or edema) Integumentary/Breasts: Skin/Breast: Reports system reviewed and no additional complaints, except as docu Exam Const: General: cooperative, no acute distress, alert and awake Orientation/consciousness: patient oriented x3 HENMT: Mouth: Yes moist mucous membranes Neck: Neck: normal visual inspection Chest: Chest palpation & inspection: normal inspection of the chest Resp: Effort & Inspection: normal respiratory effort Auscultation: clear to auscultation bilaterally Cardio: Jugular venous distension: no JVD Rate: regular rate Rhythm: regular rhythm GI: Inspection: distended, incision ( clean and dry with dressing intact (not changed today).), obesity, no visible herniation and other ( IRAJ drain with serosanguineous drainage) GI Palp: Yes abdominal tenderness ( mild near incision) Auscultation: normal bowel sounds Rectal Exam: deferred Neuro: General: patient oriented x3 and moves all extremities Speech: normal speech Extrem: General: normal exam except as noted Psych: Mental Status: mental status grossly normal Speech and movement: Normal speech and movement present Affect: normal affect Thought content: Yes Normal thought content present Objective Data Vital Signs Vital Signs: Vital Signs - 24 hr 09/20/20 14:25 09/20/20 16:30 09/20/20 16:45 Temperature 37.1 C 36.7 C Pulse Rate 113 H 117 H 110 H Respiratory Rate 16 18 18 Blood Pressure 105/53 L 143/72 H 149/97 H Pulse Oximetry 94 100 97 09/20/20 17:00 09/20/20 17:15 09/20/20 17:27 Temperature Pulse Rate 111 H 104 H 104 H Respiratory Rate 16 16 16 Blood Pressure 132/63 109/78 115/78 Pulse Oximetry 95 95 94 09/20/20 17:45 09/20/20 18:00 09/20/20 18:30 Temperature 36.6 C 36.4 C L 36.0 C L Pulse Rate 76 91 107 H Respiratory Rate 16 16 16 Blood Pressure 101/54 L 110/58 L 103/53 L Pulse Oximetry 94 90 96 09/20/20 19:13 09/20/20 21:16 09/20/20 22:56 Temperature 36.3 C L 37.0 C Pulse Rate 72 80 76 Respiratory Rate 22 H
[2020-09-21] MEDS: DEXTROSE 5%/0.9% SOD CHL 1,000 ML 125 ML IV CONT ×2 (13:40→22:07)
[2020-09-22] VITALS (8 sets, daily range): BP systolic 119–134; BP diastolic 61–69; PULSE 80–93; RESP 12–20; TEMP 36.5–37; O2SAT 88–100
[2020-09-22] MEDS: KETOROLAC 30 MG/ML VIAL (*BKC) IV PUSH ×3 (03:04→20:45)
[2020-09-22 06:05] LABS: Hematocrit 25.3 % (37.0-47.0); Hemoglobin 7.7 g/dL (12.0-15.0); Mean Corpuscular HGB Conc 30.4 g/dl (32-36); Mean Corpuscular Hemoglobin 26.3 pg (26-34); Mean Corpuscular Volume 86.3 fl (80-100); Mean Platelet Volume 9.5 fl (7.4-10.4); Platelet Count Result 355 k/mm3 (150-375); Red Blood Count 2.93 M/mm3 (4.2-5.4); Red Cell Distribution Width 14.5 % (11.5-14.5); White Blood Count 12.3 K/mm3 (4.5-10.0)
[2020-09-22 06:20] LABS: Anion Gap -1 mmol/L (8-16); Blood Urea Nitrogen 27 mg/dL (7-17); Calcium 8.1 mg/dL (8.4-10.2); Carbon Dioxide 35 mmol/L (22-30); Chloride 99 mmol/L (98-107); Estimated CRCL calculation 72 ml/min; Estimated Glomerular Filt Rate > 60; Glucose 116 mg/dL (65-105); Potassium 3.5 mmol/L (3.4-5.0); Sodium 133 mmol/L (137-145)
--- NOTE | 2020-09-22 07:47 | PM.PNGS ---
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 (2) Abdominal wound dehiscence: Onset Date: ~09/20/20 Code(s): T81.30XA - Disruption of wound, unspecified, initial encounter Status: Acute Assessment and Plan: Patient postop day 1 status post repair. Seems to be improving slowly still somewhat nauseated but has good bowel sounds. Additional Plan Start clear liquid oral intake now that there is some ostomy output Encouraged patient to be up walking and working with PT. Changing IV fluids to D5 normal saline in view of her electrolytes and will repeat labs tomorrow morning. Subjective Subjective Date/Time Seen: 09/22/20 07:47 Post Op day: 2 (Improving with better ileostomy output) Patient reports: feels better Interval history: Patient states she did get up several times yesterday. She is not having the nausea that she did yesterday. Pain is fairly well controlled. Review of Systems Review of Systems: All systems reviewed & are unremarkable except as noted in HPI and below Constitutional: Constitutional: Reports as per HPI, Reports no additional constitutional complaints, Denies chills and Denies fever(s) ENT: Reports other (Mucous Membranes moist.) Cardiovascular: Cardiovascular: Reports no additional cardiovascular complaints, Denies chest pain, Denies leg edema and Denies dyspnea Respiratory: Respiratory: Reports no additional respiratory complaints, Denies cough, Denies pain on inspiration and Denies dyspnea Gastrointestinal: Gastrointestinal: Reports as per HPI, Reports no additional gastrointestinal complaints, Denies GI cramping and Denies diarrhea Comments: Less nausea today. Pain in the abdomen not too bad Musculoskeletal: Musculoskeletal: Reports other (No calf swelling or edema) Integumentary/Breasts: Skin/Breast: Reports system reviewed and no additional complaints, except as docu Neurologic: Reports system reviewed and no additional complaints, except as documented, Denies Abnormal speech present, Denies confusion and Denies focal weakness Psychiatric: Psychiatric: Denies confusion Exam Const: General: cooperative, comfortable, no acute distress, alert, awake and uncomfortable; No confusion Orientation/consciousness: patient oriented x3 and No confusion HENMT: Mouth: Yes moist mucous membranes Neck: Neck: normal visual inspection Chest: Chest palpation & inspection: normal inspection of the chest Resp: Effort & Inspection: normal respiratory effort Auscultation: clear to auscultation bilaterally Cardio: Jugular venous distension: no JVD Rate: regular rate and tachycardic Rhythm: regular rhythm GI: Inspection: incision ( clean and dry with dressing intact ( changed today).), obesity, no visible herniation and other ( IRAJ drain with serous drainage) Auscultation: normal bowel sounds Rectal Exam: deferred Other: soft, mildly dist, incision C/D/I, ostomy c liquid and particlate output, viable, IRAJ 200 cc discharge. Urinary Catheter: Urinary Catheter: patent and draining and urine dark Neuro: General: patient oriented x3, moves all extremities, no focal motor deficits and No confusion Speech: normal speech and No Abnormal speech present Extrem: General: normal to inspection, normal exam except as noted, no clubbing, cyanosis or edema and no calf tenderness Psych: Mental Status: mental status grossly normal Speech and movement: Normal speech and movement present Affect: normal affect Insight: Good insight present (Psych) Judgement: Good j
[2020-09-22] MEDS: PANTOPRAZOLE 40 MG TABLET PO (09:04)
[2020-09-22] MEDS: ENOXAPARIN 40 MG/0.4 ML SYRINGE SUB-Q (09:04)
[2020-09-22] MEDS: ALVIMOPAN 12 MG CAPSULE PO ×2 (09:04→20:45)
[2020-09-22] MEDS: ONDANSETRON INJ 4 MG/2 ML VIAL IV PUSH (10:28)
[2020-09-22] MEDS: DEXTROSE 5%/0.9% SOD CHL 1,000 ML 100 ML IV CONT (19:13)
[2020-09-23] MEDS: KETOROLAC 30 MG/ML VIAL (*BKC) IV PUSH ×2 (02:03→08:55)
[2020-09-23 05:47] VITALS: BP 128/71; PULSE 85; RESP 16; TEMP 36; O2SAT 100
[2020-09-23] MEDS: DEXTROSE 5%/0.9% SOD CHL 1,000 ML 100 ML IV CONT ×2 (06:05→17:07)
[2020-09-23 06:21] LABS: Anion Gap -2 mmol/L (8-16); Blood Urea Nitrogen 17 mg/dL (7-17); Calcium 7.9 mg/dL (8.4-10.2); Carbon Dioxide 38 mmol/L (22-30); Chloride 100 mmol/L (98-107); Estimated CRCL calculation 66 ml/min; Estimated Glomerular Filt Rate > 60; Glucose 118 mg/dL (65-105); Potassium 3.5 mmol/L (3.4-5.0); Sodium 136 mmol/L (137-145)
[2020-09-23 06:30] LABS: Basophils Percent Auto 0.2 % (0.2-1.2); Eosinophils Absolute Auto 0.4 K/mm3 (0-0.3); Eosinophils Percent Auto 4.3 % (0-4.4); Hematocrit 24.9 % (37.0-47.0); Hemoglobin 7.4 g/dL (12.0-15.0); Immature Granulocyte Absolute 0.15 K/mm3 (0.00-0.031); Immature Granulocyte Percent A 1.7 % (0-0.5); Lymphocytes Absolute Auto 1.65 K/mm3 (0.9-3.2); Lymphocytes Percent Auto 18.7 % (18.3-44.2); Mean Corpuscular HGB Conc 29.7 g/dl (32-36); Mean Corpuscular Hemoglobin 26.3 pg (26-34); Mean Corpuscular Volume 88.6 fl (80-100); Mean Platelet Volume 9.1 fl (7.4-10.4); Monocytes Absolute Auto 0.9 K/mm3 (0.1-0.6); Monocytes Percent Auto 10.2 % (2.6-8.5); Neutrophils Absolute Auto 5.7 K/mm3 (1.3-6.7); Neutrophils Percent Auto 64.9 % (45.5-73.1); Platelet Count Result 391 k/mm3 (150-375); Red Blood Count 2.81 M/mm3 (4.2-5.4); Red Cell Distribution Width 14.3 % (11.5-14.5); White Blood Count 8.8 K/mm3 (4.5-10.0)
[2020-09-23 06:57] LABS: Hypochromasia 2+ (NORMAL); Stomatocytes 2+ (NORMAL)
--- NOTE | 2020-09-23 07:56 | PM.PNGS ---
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 Will stop the antibiotic today. Toradol for pain seems to be working okay andwill try to transition to Tylenol p.o. (2) Abdominal wound dehiscence: Onset Date: ~09/20/20 Code(s): T81.30XA - Disruption of wound, unspecified, initial encounter Status: Acute Assessment and Plan: Patient postop day 3 status post repair of Wound dehisense.. Additional Plan Will advance her to full liquid oral intake now. There is some ostomy output. Encouraged patient to be up walking and working with PT. Will hold off on removing Vieira today because urine output was low overnight and only 200 cc out for at least 8 hours Subjective Subjective Date/Time Seen: 09/23/20 07:56 Post Op day: 3 (S/P repair of wound dehisence) Patient reports: feels better Interval history: She states that she feels sleepy this AM. No nausea. No vomiting overnight. Tolerated her cl liquids OK. Review of Systems Review of Systems: All systems reviewed & are unremarkable except as noted in HPI and below Constitutional: Constitutional: Reports as per HPI, Reports no additional constitutional complaints, Denies chills and Denies fever(s) ENT: Reports other (Mucous Membranes moist.) Cardiovascular: Cardiovascular: Reports no additional cardiovascular complaints, Denies chest pain, Denies leg edema and Denies dyspnea Respiratory: Respiratory: Reports no additional respiratory complaints, Denies cough, Denies pain on inspiration and Denies dyspnea Gastrointestinal: Gastrointestinal: Reports as per HPI, Reports no additional gastrointestinal complaints, Denies GI cramping and Denies diarrhea Musculoskeletal: Musculoskeletal: Reports other (No calf swelling or edema) Integumentary/Breasts: Skin/Breast: Reports system reviewed and no additional complaints, except as docu Neurologic: Reports system reviewed and no additional complaints, except as documented, Denies Abnormal speech present, Denies confusion and Denies focal weakness Psychiatric: Psychiatric: Denies confusion Exam Const: General: cooperative, comfortable, no acute distress, alert, awake and uncomfortable; No confusion Orientation/consciousness: patient oriented x3 and No confusion HENMT: Mouth: Yes moist mucous membranes Neck: Neck: normal visual inspection Chest: Chest palpation & inspection: normal inspection of the chest Resp: Effort & Inspection: normal respiratory effort Auscultation: clear to auscultation bilaterally Cardio: Jugular venous distension: no JVD Rate: regular rate and tachycardic Rhythm: regular rhythm GI: Inspection: incision ( clean and dry with dressing intact. Changed by night nurse early this AM.), obesity, no visible herniation and other ( IRAJ drain with serous drainage) GI Palp: Yes Soft to palpation Auscultation: normal bowel sounds Rectal Exam: deferred Other: soft, mildly dist, incision C/D/I, ostomy c liquid and particlate output, viable, IRAJ 200 cc discharge. Urinary Catheter: Urinary Catheter: patent and draining and urine dark Neuro: General: patient oriented x3, moves all extremities, no focal motor deficits and No confusion Speech: normal speech and No Abnormal speech present Extrem: General: normal to inspection, normal exam except as noted, no clubbing, cyanosis or edema and no calf tenderness Psych: Mental Status: mental status grossly normal Speech and movement: Normal speech and movement present Affect: normal affect Insight: Good insight present (Psych) Judgement: Good judgement present (Psych) Objective Data Vital Signs Vital Signs: Vital Signs - 24 hr 09/22/20 09:00 09/22/20 14:25 09/22/20 14:33 Temperatur
[2020-09-23 08:22] VITALS: PULSE 80; RESP 18; O2SAT 95
[2020-09-23 08:55] VITALS: RESP 16; O2SAT 100
[2020-09-23] MEDS: PANTOPRAZOLE 40 MG TABLET PO (08:55)
[2020-09-23] MEDS: ENOXAPARIN 40 MG/0.4 ML SYRINGE SUB-Q (08:55)
[2020-09-23] MEDS: ALVIMOPAN 12 MG CAPSULE PO ×2 (08:55→20:13)
[2020-09-23 10:34] VITALS: BMI 47.4
--- NOTE | 2020-09-23 12:27 | PCNSR ---
On 09/23/20, the student,Aminah Machado, provided care and [facility]. I have reviewed the student's documentation and agree with the findings.
[2020-09-23 14:00] VITALS: BP 174/88; PULSE 93; RESP 18; TEMP 36.7; O2SAT 99
[2020-09-23 19:37] VITALS: BP 156/76; PULSE 91; RESP 16; TEMP 36.6; O2SAT 97
[2020-09-23 20:10] VITALS: O2SAT 97
[2020-09-24] MEDS: DEXTROSE 5%/0.9% SOD CHL 1,000 ML 100 ML IV CONT (02:48)
[2020-09-24 05:46] LABS: Basophils Percent Auto 0.3 % (0.2-1.2); Eosinophils Absolute Auto 0.5 K/mm3 (0-0.3); Eosinophils Percent Auto 4.8 % (0-4.4); Hematocrit 26.4 % (37.0-47.0); Immature Granulocyte Absolute 0.21 K/mm3 (0.00-0.031); Immature Granulocyte Percent A 2.1 % (0-0.5); Lymphocytes Absolute Auto 1.54 K/mm3 (0.9-3.2); Lymphocytes Percent Auto 15.5 % (18.3-44.2); Mean Corpuscular HGB Conc 30.3 g/dl (32-36); Mean Corpuscular Hemoglobin 26.8 pg (26-34); Mean Corpuscular Volume 88.6 fl (80-100); Mean Platelet Volume 8.6 fl (7.4-10.4); Monocytes Percent Auto 9.8 % (2.6-8.5); Neutrophils Absolute Auto 6.7 K/mm3 (1.3-6.7); Neutrophils Percent Auto 67.5 % (45.5-73.1); Nucleated Red Blood Cells Perc 0.2 % (0.0-0.2); Platelet Count Result 377 k/mm3 (150-375); Red Blood Count 2.98 M/mm3 (4.2-5.4); Red Cell Distribution Width 14.4 % (11.5-14.5); White Blood Count 9.9 K/mm3 (4.5-10.0)
[2020-09-24 06:05] LABS: Anion Gap -3 mmol/L (8-16); Blood Urea Nitrogen 8 mg/dL (7-17); Calcium 7.9 mg/dL (8.4-10.2); Carbon Dioxide 39 mmol/L (22-30); Chloride 100 mmol/L (98-107); Estimated CRCL calculation 102 ml/min; Estimated Glomerular Filt Rate > 60; Glucose 108 mg/dL (65-105); Potassium 3.4 mmol/L (3.4-5.0); Sodium 136 mmol/L (137-145)
[2020-09-24 06:18] VITALS: BP 150/82; PULSE 87; RESP 18; TEMP 36.5; O2SAT 97
[2020-09-24 08:00] VITALS: O2SAT 97
[2020-09-24] MEDS: ALVIMOPAN 12 MG CAPSULE PO ×2 (09:33→20:03)
[2020-09-24] MEDS: ENOXAPARIN 40 MG/0.4 ML SYRINGE SUB-Q (09:34)
[2020-09-24] MEDS: PANTOPRAZOLE 40 MG TABLET PO (09:34)
--- NOTE | 2020-09-24 11:28 | PM.PNGS ---
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 Continues to improve. Bowel function seems to be returning. Will advance to soft diet. Monitor IRAJ drain to bulb suction. Encouraged increased activity, OOB/IS, walking the halls. Continue PT/OT. Will remove Chávez catheter today. Urine output improved, oral intake improved, labs remain stable. If patient continues to improve, she could potentially be discharged tomorrow but will need home health . (2) Abdominal wound dehiscence: Onset Date: ~09/20/20 Code(s): T81.30XA - Disruption of wound, unspecified, initial encounter Status: Acute Assessment and Plan: Midline fascial dehiscence and went to the OR for wound exploration and repair of fascial dehiscence on 09/20/20. Incision looks good today. See plan above. Additional Plan I discussed the patient's case and plan of care with Dr. Nair today. Subjective Subjective Date/Time Seen: 09/24/20 11:00 Post Op day: 6 (JIMBO low anterior resection with low pelvic anastomosis and loop ileostomy, POD#4 Midline wound exploration with repair of fascial dehiscence) Patient reports: no new complaints and afebrile Interval history: Patient lying in bed on exam and has not gotten out of bed yet this morning. Tolerating full liquid diet. Pain well-controlled. No other complaints. +ileostomy output. Urine output improved - 750 cc overnight. Review of Systems Review of Systems: All systems reviewed & are unremarkable except as noted in HPI and below Exam Const: General: no acute distress, alert and awake Orientation/consciousness: patient oriented x3 Resp: Effort & Inspection: normal respiratory effort Auscultation: clear to auscultation bilaterally Cardio: Rate: regular rate Rhythm: regular rhythm GI: Inspection: obesity and other ( IRAJ drain with serous drainage) GI Palp: Yes Soft to palpation and Yes Tenderness to palpation present (GI) (incisional) Auscultation: normal bowel sounds Other: Abdominal incision with yosef intact, no drainage or signs of infection. Ileostomy with brown liquid and sediment output, stoma viable/pink. Urinary Catheter: Urinary Catheter: patent and draining and urine clear Neuro: General: moves all extremities and no focal motor deficits Extrem: General: no clubbing, cyanosis or edema and no calf tenderness Psych: Mental Status: mental status grossly normal Insight: Good insight present (Psych) Judgement: Good judgement present (Psych) Objective Data Vital Signs Vital Signs: Vital Signs - 24 hr 09/23/20 14:00 09/23/20 19:37 09/23/20 20:10 Temperature 98.1 F 97.8 F Pulse Rate 93 91 Respiratory Rate 18 16 Blood Pressure 174/88 H 156/76 H Pulse Oximetry 99 97 97 09/24/20 06:18 09/24/20 08:00 Temperature 97.7 F Pulse Rate 87 Respiratory Rate 18 Blood Pressure 150/82 H Pulse Oximetry 97 97 Intake/Output Intake/Output: Intake & Output 09/21/20 09/22/20 09/23/20 09/24/20 23:59 23:59 23:59 23:59 Intake Total 2440 1400 3060 1240 Output Total 1340 1475 1540 1185 Balance 1100 -75 1520 55 Meds/Results Medications: Active Medications Generic Name Dose Route Start Last Admin Trade Name Freq PRN Reason Stop Dose Admin Acetaminophen 500 mg 09/18/20 16:59 Acetaminophen 500 Mg Tablet PO Q6H PRN Mild Pain (1-3) or Fever Hydrocodone Bitart/Acetaminophen 2 tab 09/18/20 16:59 09/19/20 21:19 Hydrocodone/Acetaminophen (*Crx) 5-325 Mg Tablet PO 2 tab Q4H PRN Administration Pain Rated 7-10 Alvimopan 12 mg 09/19/20 09:00 09/24/20 09:33 Alvimopan 12 Mg Capsule PO 09/26/20 09:01 12 mg Q12HR PASTORA Administration Diphenhydramine HCl 25 mg 09/20/20 17:28 Diphenhydramine Hcl Inj 5
[2020-09-24 14:10] VITALS: BP 146/65; PULSE 103; RESP 16; TEMP 37.2; O2SAT 92
--- NOTE | 2020-09-24 16:07 | PC.NURSE ---
Observed patient care and reviewed documentation by [employer] student nurse Steve Yan
[2020-09-24 19:39] VITALS: BP 140/88; PULSE 99; RESP 20; TEMP 36.4; O2SAT 100
[2020-09-24 19:58] VITALS: O2SAT 100
[2020-09-24 22:30] VITALS: PULSE 88; RESP 18; O2SAT 95
[2020-09-25] VITALS (7 sets, daily range): BP systolic 132–156; BP diastolic 78–88; PULSE 89–100; RESP 18–20; TEMP 36.4–36.6; O2SAT 93–98
[2020-09-25] MEDS: ALBUTEROL SULFATE NEB 2.5 MG/0.5 ML INH INHALATION (03:45)
[2020-09-25] MEDS: ALVIMOPAN 12 MG CAPSULE PO ×2 (08:55→20:06)
[2020-09-25] MEDS: ENOXAPARIN 40 MG/0.4 ML SYRINGE SUB-Q (08:55)
[2020-09-25] MEDS: PANTOPRAZOLE 40 MG TABLET PO (08:55)
--- NOTE | 2020-09-25 11:27 | PM.PNGS ---
Progress Note: A&P Assessment and Plan (1) Metastatic colon cancer in female: Code(s): C18.9 - Malignant neoplasm of colon, unspecified Status: Acute Assessment and Plan: doing well, will dc drain, cont to encourage OOB/IS (2) Shortness of breath: Code(s): R06.02 - Shortness of breath Status: Acute Assessment and Plan: will get CXR for further workup, currently sating well on RA Subjective Subjective Date/Time Seen: 09/25/20 11:27 feels pretty good, very anxious about going home, reports some SOB Review of Systems Review of Systems: All systems reviewed & are unremarkable except as noted in HPI and below Exam Const: General: cooperative, comfortable and no acute distress Orientation/consciousness: patient oriented x3 Resp: Effort & Inspection: normal respiratory effort Auscultation: diminished lung sounds Cardio: Rate: regular rate Rhythm: regular rhythm GI: Inspection: normal to inspection and incision GI Palp: Yes Soft to palpation and Yes Tenderness to palpation present (GI) Other: soft, sl dist, milton TTP, incision C/D/I, ileostomy c good output, IRAJ s/s Objective Data Vital Signs Vital Signs: Vital Signs - 24 hr 09/24/20 14:10 09/24/20 19:39 09/24/20 19:58 Temperature 37.2 C 36.4 C Pulse Rate 103 H 99 Respiratory Rate 16 20 Blood Pressure 146/65 H 140/88 Pulse Oximetry 92 100 100 09/24/20 22:30 09/25/20 03:46 09/25/20 03:57 Temperature Pulse Rate 88 91 89 Respiratory Rate 18 18 18 Blood Pressure Pulse Oximetry 95 09/25/20 06:15 09/25/20 08:00 Temperature 36.6 C Pulse Rate 96 Respiratory Rate 18 Blood Pressure 156/81 H Pulse Oximetry 98 93 Intake/Output Intake/Output: Intake & Output 09/22/20 09/23/20 09/24/20 09/25/20 23:59 23:59 23:59 23:59 Intake Total 1400 3060 3440 480 Output Total 1475 1540 2385 150 Balance -75 1520 1055 330 Meds/Results Medications: Active Medications Generic Name Dose Route Start Last Admin Trade Name Freq PRN Reason Stop Dose Admin Acetaminophen 500 mg 09/18/20 16:59 Acetaminophen 500 Mg Tablet PO Q6H PRN Mild Pain (1-3) or Fever Hydrocodone Bitart/Acetaminophen 2 tab 09/18/20 16:59 09/19/20 21:19 Hydrocodone/Acetaminophen (*Crx) 5-325 Mg Tablet PO 2 tab Q4H PRN Administration Pain Rated 7-10 Albuterol 2.5 mg 09/24/20 20:30 09/25/20 03:45 Albuterol Sulfate Neb 2.5 Mg/0.5 Ml Inh INHALATION 2.5 mg Q4HRT PRN Administration Shortness Of Breath Alvimopan 12 mg 09/19/20 09:00 09/25/20 08:55 Alvimopan 12 Mg Capsule PO 09/26/20 09:01 12 mg Q12HR PASTORA Administration Diphenhydramine HCl 25 mg 09/20/20 17:28 Diphenhydramine Hcl Inj 50 Mg/Ml Vial IV PUSH Q6H PRN Itching Enoxaparin Sodium 40 mg 09/19/20 09:00 09/25/20 08:55 Enoxaparin 40 Mg/0.4 Ml Syringe SUB-Q 40 mg DAILY PASTORA Administration Hydrocortisone 1 applic 09/18/20 17:08 Hydrocortisone 1% 30 Gm Cream TOPICAL BID PRN Dry Skin/itching Miconazole Nitrate 1 applic 09/18/20 17:06 Miconazole Nitrate 2% Cream 30 Gm Tube TOPICAL BID PRN Dry Skin Morphine Sulfate 2 mg 09/18/20 16:59 09/20/20 13:12 Morphine Sulfate (*Crx) 2 Mg/Ml Inj IV PUSH 2 mg Q2H PRN Administration Pain Rated 4-6 Morphine Sulfate 4 mg 09/20/20 17:28 Morphine Sulfate (*Crx) 4 Mg/Ml Inj IV PUSH Q2H PRN Pain Rated 7-10 Naloxone HCl 0.1 mg 09/18/20 16:59 Naloxone Hcl 0.4 Mg/Ml Vial IV PUSH Q2M PRN Opiate Reversal Ondansetron HCl 4 mg 09/18/20 16:59 09/22/20 10:28 Ondansetron Inj 4 Mg/2 Ml Vial IV PUSH 4 mg Q4H PRN Administration Nausea And Vomiting Pantoprazole Sodium 40 mg 09/19/20 09:00 09/25/20 08:55 Pantoprazole 40 Mg Tablet PO 40 mg QAM PASTORA Administration Radiology Results: ITS Impressions NG Tube Placement 09/20/20 14:38 IMPRESSION: 1. Fluoroscopy utilized during naso
[2020-09-26] MEDS: ALBUTEROL SULFATE NEB 2.5 MG/0.5 ML INH INHALATION (02:58)
[2020-09-26 02:59] VITALS: PULSE 94; RESP 18
[2020-09-26 03:12] VITALS: PULSE 94; RESP 18
[2020-09-26 04:18] VITALS: BP 150/81; PULSE 99; RESP 17; TEMP 36.8; O2SAT 93
[2020-09-26] MEDS: ENOXAPARIN 40 MG/0.4 ML SYRINGE SUB-Q (08:24)
[2020-09-26] MEDS: PANTOPRAZOLE 40 MG TABLET PO (08:24)
[2020-09-26] MEDS: ALVIMOPAN 12 MG CAPSULE PO (08:24)
--- NOTE | 2020-09-26 09:06 | PM.DS ---
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 Status: Acute Assessment and Plan: s/p LAR, path reviewed, cont routine postop care, ileostomy care, f/u 2 wks (2) Metastatic colon cancer in female: Code(s): C18.9 - Malignant neoplasm of colon, unspecified Status: Acute Assessment and Plan: path reviewed, will send back to oncology as outpt once healed from surgery (3) Abdominal wound dehiscence: Onset Date: ~09/20/20 Code(s): T81.30XA - Disruption of wound, unspecified, initial encounter Status: Acute Assessment and Plan: s/p repair of fascial dehiscence, doing well, light activity restrictions (4) Morbid obesity: Code(s): E66.01 - Morbid (severe) obesity due to excess calories Status: Acute Assessment and Plan: lifestyle modifications (5) Benign essential hypertension: Code(s): I10 - Essential (primary) hypertension Status: Acute Assessment and Plan: stable, cont home meds (6) Dyslipidemia: Code(s): E78.5 - Hyperlipidemia, unspecified Status: Acute Assessment and Plan: stable, cont home meds (7) Shortness of breath: Code(s): R06.02 - Shortness of breath Status: Acute Assessment and Plan: resolved, CXR unremarkable, cont to encourage OOB/IS DS: Summary Hospital Course Reason for hospitalization: rectosigmoid colon cancer Hospital Course: Patient is a 75-year-old female that presented to the hospital for planned low anterior resection secondary to rectosigmoid colon cancer. The patient was taken to the operating room on 09/18 for low anterior resection and loop ileostomy, please see full operative report for details of the procedure. The patient was transferred to the floor postoperatively without issue. On postop day 2, the patient began to severe nausea and vomiting. Workup was significant for what looked to be a fascial dehiscence with a loop of small bowel in the subcutaneous space. The patient was taken emergently to the operating for repair this dehiscence, please see full operative report for details this procedure. Postoperatively, patient was transferred back to the floor. Over the next few days, the patient continued to improve clinically. She was able to ambulate with PT and her pain was well controlled. She began to have ileostomy function and was able to tolerate a diet without issue. She did initially have some urinary output issues however this resolved. We are able to discontinue both her Chávez and IRAJ drain prior to discharge. The patient will now be sent home with home health. Will follow up with me in 2 weeks. Status at Discharge Functional status at discharge: independent ambulation Overall status at discharge: patient is progressing back to baseline Time Spent with Patient Time attestation: Total time spent providing and/or coordinating discharge services: Time spent: Less than 30 minutes Exam Const: General: cooperative, comfortable and no acute distress Nutritional Appearance: obese Orientation/consciousness: patient oriented x3 Resp: Effort & Inspection: normal respiratory effort Auscultation: diminished lung sounds Cardio: Rate: regular rate Rhythm: regular rhythm GI: Inspection: normal to inspection and incision GI Palp: Yes Soft to palpation, Yes Tenderness to palpation present (GI) and No Guarding due to palpation present (GI) Other: soft, sl dist, milton TTP, incisions C/D/I, ileostomy viable and good fxn DS: Data Data Completed and Pending Completed studies during hospitalization: Pending at discharge 09/18/20 13:31 Surgical [PTH] Routine Surgical [PTH] Routine Discharge Plan Discharge Attending physician on discharge: Precious Nair [facility]
--- NOTE | 2020-09-27 14:24 | PC.NURSE ---
Néstor daughter called because she said she could not find the phone number to the home health people. I let her know where to locate it on the discharge packet and then also gave her the number as well. Patient was thankful.
== END 2020-09-26 10:40 | disposition home health service (06) | DRG 330 ==
LOC: ANH3MED 17:00
PROVIDERS: Nurse Practitioner Family; Surgery; Admitting Provider Surgery; PCP Family Medicine; Visit Provider Surgery
PROC: 0D1E4Z4 Bypass Large Intestine to Cutaneous, Percutaneous Endoscopic Approach (ICD-10-PCS; principal; 2020-09-18 12:00)
PROC: 0JQ80ZZ Repair Abdomen Subcutaneous Tissue and Fascia, Open Approach (ICD-10-PCS; CPT 49000; principal; 2020-09-20 15:00)
DX: C19 Malignant neoplasm of rectosigmoid junction (principal); T81.32XA Disruption of internal operation (surgical) wound, not elsewhere classified, initial encounter; Z68.41 Body mass index [BMI] 40.0-44.9, adult; E66.01 Morbid (severe) obesity due to excess calories; I10 Essential (primary) hypertension; E78.5 Hyperlipidemia, unspecified; Z87.891 Personal history of nicotine dependence; R06.02 Shortness of breath; Z79.899 Other long term (current) drug therapy
CPT/HCPCS: 36415; 71045; 80048; 83735; 85025; 85027; 88305; 88309; 94640; 97110; 97116; 97161; 97165; 97530; 97535; A9270; C1729; J0131; J0330; J0690; J1100; J1650; J1885; J2250; J2270; J2405; J2543; J2704; J2710; J3010; J7042; J7120